=== PATIENT | female | born 1955 | race Caucasian/White ===

== ENCOUNTER → 2018-04-03 | Outpatient (CLI) | payer OTHER ==
[~2018-04-03] MED LIST: ACET-1311 PO; BIOT1CAP8; DULO-24 PO; FISHOIL PO; IBUP-1050 PO; MULT-506 PO
== END | disposition home or self-care (01) ==
LOC: C.PAPS 13:55
PROVIDERS: ATTEND Obstetrics & Gynecology
DX: Z12.4 Encounter for screening for malignant neoplasm of cervix (principal); F33.9 Major depressive disorder, recurrent, unspecified